=== PATIENT | female | born 1995 ===

== ENCOUNTER 2019-06-22 12:19 | Emergency (ER) | payer OTHER ==
[~2019-06-22] VITALS: Ht 152.4 cm; Wt 47.6 kg
[2019-06-22] MEDS ORDERED: Omnipaque-300 100ml vial INJ PRN (12:45)
--- NOTE | 2019-06-22 12:45 | NUR ---
ED Nurse Note: PT came from home w/ parent (mom) complaints of diarrhea x "8-10 within 24hrs". No reports of N/V; not on any medications currently. Currently on RA, no S/S of respiratory distress. Will continue to monitor.
--- NOTE | 2019-06-22 13:12 | NUR ---
ED Nurse Note: Selvin up robert, PT refused. Wasted it on pyxis.
[2019-06-22 13:46] LABS: APPEARANCE,URINE CLOUDY; BILIRUBIN, URINE NEGATIVE (NEGATIVE); GLUCOSE, URINE (UA) NEGATIVE (NEGATIVE); KETONES,URINE 2+ (NEGATIVE); LEUKOCYTE ESTERASE ,URINE NEGATIVE (NEGATIVE); NITRITE,URINE NEGATIVE (NEGATIVE); PH,URINE 6 (4.5-8.0); PROTEIN,URINE 1+ (NEGATIVE); UROBILINOGEN,URINE NORMAL MG/DL (0.0-1.0)
--- NOTE | 2019-06-22 13:46 | Diagnostic Imaging Report ---
Indication: Dyspnea Comparison: None A single view chest radiograph was obtained. Findings: Cardiomediastinal appearance is within normal limits for age. The lungs are clear. Pulmonary vascularity is appropriate. The diaphragmatic contour is smooth and costophrenic angles are sharp. No pleural effusions are identified. The bones are unremarkable. Impression: No acute findings
[2019-06-22 13:48] LABS: COLOR,URINE YELLOW
[2019-06-22 13:50] LABS: BASOPHILS % (AUTO) 0.5 % (0.0-2.0); EOSINOPHILS % (AUTO) 0.5 % (0.0-3.0); HEMATOCRIT 36.1 % (37.0-47.0); HEMOGLOBIN 12.2 G/DL (12.0-16.0); LYMPHOCYTES % (AUTO) 8.6 % (20.0-45.0); MEAN CORPUSCULAR VOLUME 88 FL (80-99); MONOCYTES % (AUTO) 5.8 % (1.0-10.0); NEUTROPHILS % (AUTO) 84.7 % (45.0-75.0); PLATELET COUNT 236 K/UL (150-450); RED BLOOD COUNT 4.12 M/UL (4.20-5.40); RED CELL DISTRIBUTION WIDTH 10.8 % (11.6-14.8); WHITE BLOOD COUNT 17.5 K/UL (4.8-10.8)
[2019-06-22 13:54] VITALS: BP 100/66
[2019-06-22 13:56] LABS: ANION GAP 5 mmol/L (5-15); BLOOD UREA NITROGEN 5 mg/dL (7-18); CALCIUM 8.6 MG/DL (8.5-10.1); CARBON DIOXIDE 32 MMOL/L (21-32); CHLORIDE 103 MMOL/L (98-107); CREATININE 0.6 MG/DL (0.55-1.30); SODIUM 140 MMOL/L (136-145)
[2019-06-22 14:01] LABS: ALANINE AMINOTRANSFERASE 19 U/L (12-78); ALBUMIN 3.8 G/DL (3.4-5.0); ALBUMIN/GLOBULIN RATIO 1.1 (1.0-2.7); ALKALINE PHOSPHATASE 41 U/L (46-116); ASPARTATE AMINO TRANSFERASE 15 U/L (15-37); BILIRUBIN,TOTAL 0.6 MG/DL (0.2-1.0); CREATINE KINASE 38 U/L (26-308)
--- NOTE | 2019-06-22 14:08 | NUR ---
ED Nurse Note: PT went to CT by wheelchair.
[2019-06-22] MEDS ORDERED: NS w/KCl 20mEq 1000ml 1,000 ML IV SCH (14:15)
--- NOTE | 2019-06-22 14:22 | Emergency Room Report ---
History of Present Illness General Chief Complaint: Diarrhea Source: Patient Present Illness HPI 23-year-old female with no significant past medical history here complaining of few weeks of multiple bouts of nonbloody diarrhea. Patient reports that she was first diagnosed with strep throat 3 weeks ago and was put on 2 rounds of oral amoxicillin. Patient went back to the primary care as a strep throat was not resolved and was put on clindamycin. After finishing clindamycin patient started having diarrhea went back to the primary care and without being tested for C. difficile patient was put on Flagyl. Patient reports that she finished her Flagyl yesterday however started having multiple bouts of nonbloody diarrhea. Complains of diffuse abdominal pain however denies any nausea or vomiting at this time. Denies fever and chills, chest pain, shortness of breath , palpitation, dysuria, urinary frequency. Denies any recent travel. Denies any sexually active. Denies unintentional weight loss. Patient sitting comfortably however has elevated heart rate. Denies drug use. Has not taken any other medication for symptom relief. Patient is here with her mom and concerned about her symptoms. Also complains of bilateral lower extremity cramping feeling heavy x1 day. Denies any fall or injury. Allergies: Coded Allergies: No Known Allergies (Unverified , 06/22/19) Patient History Past Medical History: see triage record Past Surgical History: unable to obtain Pertinent Family History: none Last Menstrual Period: 06/11/19 Now: No Immunizations: UTD Reviewed Nursing Documentation: PMH: Agreed; PSxH: Agreed Nursing Documentation-PMH Past Medical History: No History, Except For Review of Systems All Other Systems: negative except mentioned in HPI Physical Exam Vital Signs Date Time Temp Pulse Resp B/P (MAP) Pulse Ox O2 Delivery O2 Flow Rate FiO2 06/22/19 12:25 99.1 120 18 100/66 (77) 96 Room Air Sp02 EP Interpretation: abnormal - tachy General Appearance: no apparent distress, alert, GCS 15, non-toxic Head: normocephalic, atraumatic Eyes: bilateral eye normal inspection, bilateral eye PERRL ENT: hearing grossly normal, normal pharynx, no angioedema, normal voice Neck: full range of motion, supple/symm/no masses Respiratory: chest non-tender, lungs clear, normal breath sounds, no rhonchi, no respiratory distress, no retraction, no wheezing, speaking full sentences Cardiovascular #1: normal inspection, regular rate, rhythm, no edema, no gallop , no murmur, normal capillary refill Gastrointestinal: soft, no mass, no organomegaly, no peritonitis, no bruit, non -distended, no guarding, no hernia, no pulsatile mass, no rebound Rectal: deferred Genitourinary: no CVA tenderness Musculoskeletal: back normal, gait/station normal, normal range of motion, non- tender, no calf tenderness Neurologic: alert, oriented x3, responsive, motor strength/tone normal, sensory intact, speech normal Psychiatric: judgement/insight normal, memory normal, mood/affect normal, no suicidal/homicidal ideation Skin: no rash Lymphatic: no adenopathy Medical Decision Making PA Attestation All my diagnosis and treatment plans were reviewed ad discussed with my supervising physician Dr. Hart Diagnostic Impression: Primary Impression: Colitis Additional Impressions: Cystitis Kidney lesion Hiatal hernia Low serum potassium level ER Course 23-year-old female with no significant past medical history here complaining of few weeks of multiple bouts of nonbloody diarrhea. Patient reports that she was first diagnosed with strep throat 3 weeks ago and was put on 2 rounds of oral amoxicillin. Patient went back to the primary care as a strep throat was not resolved and was put on clindamycin. After finishing clindamycin patient started having diarrhea went back to the primary care and without being tested for C. difficile patient was put on Flagyl. Patient reports that she finished her Flagyl yesterday however started having multiple bouts of nonbloody diarrhea. Complains of diffuse abdominal pain however denies any nausea or vomiting at this time. Denies fever and chills, chest pain, shortness of breath , palpitation, dysuria, urinary frequency. Denies any recent travel. Denies any sexually active. Denies unintentional weight loss. Patient sitting comfortably however has elevated heart rate. Denies drug use. Has not taken any other medication for symptom relief. Patient is here with her mom and concerned about her symptoms. Also complains of bilateral lower extremity cramping feeling heavy x1 day. Denies any fall or injury. Ddx considered but are not limited to: appendicitis, cholecystis, gastritis, gastroenteritis, UTI, pyelonephritis, SBO, diverticulitis, influenza with GI manifestation, VT, complication with Vital signs: are WNL, pt. is afebrile H&PE are most consistent with: colitis, cystitis, renal lesion ORDERS: abdominal CT, abdominal pain set, EKG, bactrim, potassium ED INTERVENTIONS: ns bolus, potassium DISCHARGE: At this time pt. is stable for d/c to home. Will provide printed patient care instructions, and any necessary prescriptions. Care plan and follow up instructions have been discussed with the patient prior to discharge. Follow-up with your primary care provider for referral to gastroenterology for further evaluation of your colitis keep a BRAT diet, increase oral hydration specially electrolyte water. If worsening symptoms return to the emergency room. After I explained the aftercare instructions and also Dr. Hart explained the same thing patient and patient mom insisted on further explanation and also talking over the phone with uncle who appears to be a doctor. After being told that we cannot give any medical advice over the phone patient mom returns and asks and insisted on having her brother. She later claims that is the patient's primary care physician to talk to the supervising physician regarding diagnosis and treatment. I had my supervising physician Dr. West talked to pcp EKG Diagnostic Results Rate: tachycardiac ST Segments: no acute changes Other Impression No acute ST changes Chest X-Ray Diagnostic Results Chest X-Ray Diagnostic Results : Chest X-Ray Ordered: Yes # of Views/Limited/Complete: 1 View Indication: Other EP Interpretation: Yes PA Xray: Interpretation reviewed, by supervising MD, and agrees with findings. Interpretation: no consolidation, no effusion, no pneumothorax Impression: No acute disease Electronically Signed by: Madhuri Hernandez PA-C CT/MRI/US Diagnostic Results CT/MRI/US Diagnostic Results : Imaging Test Ordered: CT abd pelvis with contrast Impression Diffuse thickening and enhancement of the small bowel and colon, especially the transverse and rectosigmoid colon. Inflammatory changes and small free fluid in the abdomen and pelvis. Findings consistent with enteritis and colitis. No bowel obstruction. Normal appendix. Mild thickening of the urinary bladder, may be reactive cystitis. No obstructive uropathy. Uterus and adnexa unremarkable. Small low-density lesion in the left kidney. Liver, gallbladder, pancreas, spleen unremarkable. Small hiatal hernia. Lung bases are clear. Last Vital Signs Date Time Temp Pulse Resp B/P (MAP) Pulse Ox O2 Delivery O2 Flow Rate FiO2 06/22/19 13:54 99.1 18 100/66 96 Room Air 06/22/19 12:25 120 Disposition: HOME, SELF-CARE Condition: Stable Scripts Metronidazole* (FLAGYL*) 500 Mg Tablet 500 MG ORAL EVERY 8 HOURS for 10 Days, #30 TAB Prov: Madhuri White 06/22/19 Potassium Chloride (Potassium Chloride) 20 Meq Tablet.er 20 MEQ PO DAILY for 5 Days, #5 TAB Prov: Madhuri White 06/22/19 Trimethoprim/Sulfamethoxazole 160/800* (BACTRIM DS TABLET*) 1 Each Tablet 1 TAB ORAL TWICE A DAY for 7 Days, #14 TAB Prov: Madhuri White 06/22/19 Patient Instructions: Colitis, Diarrhea, Adult Additional Instructions: Follow-up with your primary care provider for referral to gastroenterology for further evaluation of your colitis keep a BRAT diet, increase oral hydration specially electrolyte water. If worsening symptoms return to the emergency room. Madhuri White Jun 22, 2019 14:22
--- NOTE | 2019-06-22 14:32 | NUR ---
ED Nurse Note: PT started on IV K, prenancy test negative. Will continue to monitor PT.
--- NOTE | 2019-06-22 14:49 | Diagnostic Imaging Report ---
Indication: Abdominal pain Technique: Continuous helical transaxial imaging of the abdomen and pelvis was obtained from the lung bases to the pubic symphysis during intravenous contrast administration. Coronal 2-D reformats were also obtained. Study obtained in a Siemens sensation [address] Automatic Exposure Control was utilized. Total Dose length Product (DLP): 468.[address] Dose Index Volume (CTDIvol): 8.7 mGy Comparison: None Findings: The lung bases are clear. Gallbladder is contracted. There is a small left renal cyst. The liver and spleen and pancreas are unremarkable. There is abnormal enhancement and wall thickening of the sigmoid colon and descending colon. Any suspicious for colitis. Correlate clinically. There is no abscess identified. Mild amount of free fluid noted within the pelvis. The appendix is partially seen and appears normal. Small bowel appears unremarkable. Uterus noted. Urinary bladder is unremarkable. IMPRESSION: Suspected colitis involving the descending colon, sigmoid colon and rectum. Please correlate clinically. Mild free fluid which may be related to inflammation or physiologic. 1 cm left renal cyst. [facility] has communicated the preliminary results to the Emergency Department. Their findings are largely concordant with this report. The CT scanner at [facility] is accredited by the [employer] and the scans are performed using dose optimization techniques as appropriate to a performed exam including Automatic Exposure control.
[2019-06-22] MEDS ORDERED: BACTRIM DS TAB1 EAC1 ORAL (15:07)
[2019-06-22] MEDS ORDERED: POTASSIUM CHLO20 ME3 PO (15:07)
[2019-06-22] MEDS ORDERED: METRONIDAZOLE500 MG ORAL (15:21)
[2019-06-22 15:48] VITALS: BP 108/80
--- NOTE | 2019-06-22 15:48 | NUR ---
ER DISCHARGE NOTE: Patient is cleared to be discharged per ERMD, pt is aox4, on room air, with stable vital signs. pt was given dc and prescription instructions, pt was able to verbalize understanding, pt id band and iv site removed without complications. pt is able to ambulate with steady gait. pt took all belongings.
== END 2019-06-22 15:48 | disposition home or self-care (01) ==
LOC: EMR 12:49
DX: K52.9 Noninfective gastroenteritis and colitis, unspecified (principal); N30.90 Cystitis, unspecified without hematuria; K44.9 Diaphragmatic hernia without obstruction or gangrene; N28.9 Disorder of kidney and ureter, unspecified
CPT/HCPCS: 36415; 71045; 74177; 80053; 80307; 81003; 81025; 82550; 83690; 84484; 85025; 85610; 85730; 86850; 86900; 86901; 93005; 96360; 96361; 99284; Q9967; J2405; J7030